=== PATIENT | female | born 1980 | race Caucasian/White ===

== ENCOUNTER 2019-08-24 12:09 | Emergency (ER) | payer BC ==
[~2019-08-24] VITALS: Ht 167.6 cm; Wt 86.2 kg
[2019-08-24 12:10] VITALS: BP 133/83
--- NOTE | 2019-08-24 12:12 | NUR ---
PT PLACED IN HALLWAY BED C.
[2019-08-24] MEDS ORDERED: ONDANSETRON 4 MG/2 ML VIAL IVP ONE ×2 (12:20→13:15)
--- NOTE | 2019-08-24 12:30 | NUR ---
C/O NAUSEA/DIZZINESS STARTING APPROX. 1 HOUR AGO. PT STATES SHE FEELS LIKE HER EYES/BUE/BLE LIMBS ARE MOVING INVOLUNTARILY. NO NYSTAGMUS NOTED, NO INVOLUNTARY LIMB MOVEMENT NOTED. ABD SOFT FLAT NON TENDER. BOWEL SOUNDS PRESENT X4. PT DENIES ABD PAIN OR DIARRHEA. PT PLACED ON PORTABLE MONITOR IN [facility]
--- NOTE | 2019-08-24 12:45 | NUR ---
BAL SIMMONS AT BEDSIDE EVALUATING PT
[2019-08-24] MEDS ORDERED: ALBUTEROL SULFATE/IPRATROPIU 3 ML SOL IH ONE (13:10)
[2019-08-24] MEDS ORDERED: NACL 0.9% 1,000 ML IV ONE (13:15)
[2019-08-24 13:36] LABS: BASOPHILS % (AUTO) 0.7 % (0.0-2.0); EOSINOPHILS % (AUTO) 0.7 % (0.0-4.0); HEMATOCRIT 42.6 % (36-48); HEMOGLOBIN 14.4 g/dL (12.0-16.0); LYMPHOCYTES # (AUTO) 1.3 K/uL (2.5-16.5); LYMPHOCYTES % (AUTO) 23.9 % (20.5-51.1); MEAN CORPUSCULAR HEMOGLOBIN 31 pg (27-31); MEAN CORPUSCULAR HGB CONC 34 g/dL (33-37); MEAN CORPUSCULAR VOLUME 90.9 fL (80-94); MONOCYTES # (AUTO) 0.3 K/uL (0.8-1.0); NEUTROPHILS # (AUTO) 3.6 K/uL (1.8-7.7); NEUTROPHILS % (AUTO) 68.7 % (42.2-75.2); PLATELET COUNT (AUTO) 306 K/uL (140-450); RED BLOOD CELL COUNT(AUTO) 4.69 MIL/uL (4.20-5.40); WHITE BLOOD COUNT (AUTO) 5.3 K/uL (4.8-10.8)
[2019-08-24 13:57] LABS: ALBUMIN 3.8 g/dL (3.4-5.0); ANION GAP 13.7 (8-16); POTASSIUM 3.7 mmol/L (3.5-5.1); TOTAL BILIRUBIN 0.3 mg/dL (0.0-1.0)
[2019-08-24] MEDS ORDERED: MECLIZINE 25 MG TAB PO ONE (15:15)
[2019-08-24 16:55] VITALS: BP 108/68
--- NOTE | 2019-08-24 16:55 | NUR ---
Patient discharged with v/s stable. Written and verbal after care instructions given and explained. Patient alert, oriented and verbalized understanding of instructions. Ambulatory with steady gait. All questions addressed prior to discharge. ID band removed. Patient advised to follow up with PMD. Rx of ZOFRAN & MECLIZINE given. Patient educated on indication of medication including possible reaction and side effects. Opportunity to ask questions provided and answered.
== END 2019-08-24 16:55 | disposition home or self-care (01) ==
LOC: MED 12:09
DX: R11.2 Nausea with vomiting, unspecified (principal); R42 Dizziness and giddiness; F31.9 Bipolar disorder, unspecified; Z91.010 Allergy to peanuts
CPT/HCPCS: 36415; 80053; 81025; 85025; 94640; 96361; 96374; 96376; 99284; J2405; J8597